=== PATIENT | female | born 1980 | race Caucasian/White ===

== ENCOUNTER 2022-12-25 20:24 | Outpatient (REF) | payer BC, SELFPAY ==
[2022-12-30 14:09] LABS: Age Gdln ACOG Testing Note (.); HPV Aptima Negative (Negative); IGP, Aptima HPV, rfx 16/18,45 Note (.)
== END 2022-12-25 20:25 | disposition home or self-care (01) ==
LOC: LAB 20:24
PROVIDERS: Visit Provider Obstetrics & Gynecology
DX: Z01.419 Encounter for gynecological examination (general) (routine) without abnormal findings (principal)
CPT/HCPCS: 87624; G0145

== ENCOUNTER 2023-08-14 09:53 | Outpatient (OUT) | payer BC, SELFPAY ==
--- OUTSIDE RECORDS SUMMARY | 2023-08-14 10:12 | XMS_ITS ---
Patient Summarization (C-CDA 2.1 CCD) Created on: August 14, 2023 GHULAM WEBB : 1980 Sex: Female Author Organization Sample organization Care Team Providers Care Manufacturing Engineer Supervisor Name Role Phone LYNDSAY CARMICHAEL Primary Care Physician Arlet Mullen Unavailable Jelly Cr Unavailable Cecilio KOLB Attending Unavailable Cecilio KOLB Attending Unavailable CRYSTAL ., DR DUBOIS Admitting Unavailable CRYSTAL ., DR DUBOIS Attending Unavailable [facility], DR FRANCISCO Primary Care Unavailable CRYSTAL ., DR DUBOIS Consulting Unavailable ZIER, DR CASEY Hernandez Consulting Unavailable Encounters Encounter Date Encounter Type Care Provider Facility Start: 07-11-2022 End: 07-12-[address] SHERLY ROJAS . Facility: Start: 06-04-2021 ambulatory Cecilio KOLB Facili ty:[facility] Start: 05-27-2021 End: 05-28-2021 ambulatory Cecilio KOLB Facility: [place] Start: 05-27-2021 End: 05-27-2021 Patient encounter procedure Eliu Gaona Jr. [facility] [place] Start: 04-29-2021 ambulatory Cecilio KOLB Facility :[facility] Start: 02-11-2021 End: 02-11-2021 ambulatory Jelly Cr Other [employer] Other Start: 02-11-2021 Office outpatient visit 15 minutes Jelly Cr [facility] Start: 01-15-2021 End: 01-15-2021 ambulatory Arlet Mullen Other [employer] Other Start: 01-15-2021 Office outpatient visit 15 minutes Arlet Mullen [facility] Medications Current Medications Medication Drug Class(es) Dates Sig (Normalized) Sig (Original) acetaminophen 325 mg oral tablet (1 source) Start: 07-26-2020 take 1 mg by mouth every four hours Tylenol 325 mg Tab mg tab(s), Oral, q4hr, Refills(s) 0 Start Date: 07/26/20 Status: Ordered acetaminophen 325 mg / butalbital 50 mg oral tablet (1 source) Barbiturate Start: 07-26-2020 take 1 tablet by mouth every four hours acetaminophen-butal bital 325 mg-50 mg oral tablet tab(s), Oral, q4hr, Refill(s) 0 Start Date: 07/26/20 Status: Ordered cyclobenzaprine hydrochloride 10 mg oral tablet (1 source) Muscle Relaxant Start: 04-16-2021 take 1 tablet by mouth twice daily as needed for muscle spasms cyclobenzaprine 10 mg Tab 10 mg = 1 tab(s), Oral, BID, PRN for spasm, # 60 tab(s), Refills(s) 1, Pharmacy: [facility]/pharmacy #[id number], 176, cm, 04/16/21 9:02:00 EST, Height/Length Dosing, 75.9, kg, 04/16/21 9:02:00 EST, Weight Dosing Start Date: 04/16/21 Status: Ordered eletriptan 40 mg oral tablet (1 source) Serotonin-1b and Serotonin-1d Receptor Agonist Start: 07-26-2020 Relpax 40 mg Tab mg tab(s), Oral, as needed, Refills(s) 0 Start Date: 07/26/20 Status: Ordered (2 sources) Active Motrin Migraine Pain (1 source) Start: 07-26-2020 take 1 mg by mouth every six hours Motrin Migraine Pain mg, Oral, q6hr, Refills(s) 0 Start Date: 07/26/20 Status: Ordered phentermine hydrochloride 37.5 mg oral tablet (1 source) Sympathomimetic Amine Anorectic Start: 07-26-2020 take 1 tablet by mouth once daily phentermine 37.5 mg oral tablet 37.5 mg = 1 tab(s), Oral, Daily, Refills(s) 0 Start Date: 07/26/20 Status: Ordered Completed/Discontinued Medications Medication Drug Class(es) Dates Sig (Normalized) Sig (Original) cephalexin 500 mg oral capsule (1 source) Cephalosporin Antibacterial Start: 04-16-2021 take 1 tablet by mouth once daily Keflex 500 mg Cap 500 mg = 1 cap(s), Oral, Daily, take 1 tab one day prior to the procedure and one tab after the procedure, # 2 tab(s), Refills(s) 0, Pharmacy: [facility]/pharmacy #[id number], 176, cm, 04/16/21 9:02:00 EST, Height/Length Dosing, 75.9, kg, 04/16/21 9:02:00 EST, Raphael... Start Date: 04/16/21 Status: Ordered Payers Date Payer Category Payer Unknown [id number] 1980 Unknown [id number] [id number] 1980 Unknown [id number] 1980 Unknown [id number] [id number] [id number] 1961 [facility] [id number] Problems Active Problems Problem Classification Problem Date Documented Da te Episodic/Chronic Abdominal pain (1 source) Flank pain 10-26-2020 Episodic Genitourinary symptoms and ill-defined conditions (1 source) Genuine stress incontinence 04-16-2021 Chronic Genitourinary symptoms and ill-defined conditions (2 sources) Increased frequency of urination; Translations: [Nocturia] 04-16-2021 Episodic Other diseases of kidney and ureters (1 source) Obstruction of pelviureteric junction 10-26-2020 Episodic Past or Other Problems Problem Classification Problem Date Documented Da te Episodic/Chronic Immunizations and screening for infectious disease (2 sources) Contact with and (suspected) exposure to other viral communicable diseases Onset: 01-15-2021 Resolved: 02-11-2021 Episodic Other upper respiratory infections (1 source) Acute upper respiratory infection, unspecified Onset: 01-15-2021 Resolved: 01-15-2021 Episodic Procedures Date Procedure Procedure Detail Performing Clinician Removal of intrauterine device Eliu Gaona Jr. Results Test Name Value Interpretation Reference Range Facility MG MAMM SCREEN 3D HYUN CADon 07-11-2022 MG MAMM SCREEN 3D HYUN CAD Patient: TRACEYGHULAM Aimee. Exam Date: 07/11/2022 : 1980 Gender:F Ordering : DR SHERLY ROJAS . Admission #: [id number] Family : Order #: [id number] CLICK HERE TO VIEW EXAM RADIOLOGY REPORT PROCEDURE: MAMMOGRAM SCREENING 3D BILATERAL CAD COMPARISON: MG MAMM SCREEN 3D HYUN CAD, 2020. INDICATIONS: Screening mammography Calculator Name NCI Breast Cancer Risk Assessment Tool 5 Year Breast Cancer Risk 0.50% Lifetime Breast Cancer Risk 6.50% Personal Breast Cancer No Personal Ovarian Cancer No Treatments None Family Cancers Mother with tongue cancer at age 42. LOCATION: [facility] BREAST COMPOSITION: Heterogeneously dense,which may obscure small masses. FINDINGS: DIAGNOSTIC CATEGORY 1--NEGATIVE. RIGHT BREAST: No significant suspicious finding. No significant change has occurred. LEFT BREAST: No significant suspicious finding. No significant change has occurred. RECOMMENDATIONS: ROUTINE MAMMOGRAM AND CLINICAL EVALUATION IN 12 MONTHS. PLEASE NOTE: A NORMAL MAMMOGRAM DOES NOT EXCLUDE THE POSSIBILITY OF BREAST CANCER. A CLINICALLY SUSPICIOUS PALPABLE LUMP SHOULD BE BIOPSIED. Dictated by: Casey Fuentes M.D. on 07/11/2022 at 13:34 Approved by: Casey Fuentes M.D. on 07/11/2022 at 13:46 Normal [facility] Patient Correspondenceon Patient Correspondence [id number] #1.00CD:127 Normal [facility] Patient Correspondenceon Patient Correspondence [id number] #1.00CD:127 Normal [facility] Provider Letteron 04-10-2022 Provider Letter April 10, 2022 GHULAM WEBB [address] [place] [address] GHULAM WEBB 1980 Dear Mrs. Webb, This letter is to inform you that the providers of [facility], [facility] will no longer be responsible for your routine medical care. Emergency care only will be provided for the thirty (30) days following this letter. During this time period we suggest that you find another physician for your medical needs. A listing of area physicians can be found on [facility]'s website at [email or web address] or you may contact your health plan. We will be glad to forward your records to your new physician as long as we receive a signed release of records form. Sincerely, Dr. Eliu Gaona [facility] [address] [place] [address]. [place] [address] [facility] Patient Letter FTon 2022 Patient Letter [facility] March 24, 2022 Dear Ms. Ghulam Webb, I am corresponding to you by certified mail because you have a medical condition, dilated kidney and obstructive voiding symptoms, which requires follow up. You are a patient of Dr. Gaona who has been out on medical leave. It was recommended that you follow up and we sent you a certified letter previously. Please contact my office at your earliest convenience and we will reschedule your appointment so I can closely monitor your condition. I cannot be responsible for your urologic care if you do not follow up as recommended. Sincerely, Antione Kimble M.D., [facility] DARINEL CRUZ, Antione [facility] Patient Correspondenceon Patient Correspondence [id number] #1.00CD:127 [facility] Provider Letteron 02-04-2022 Provider Letter February 04, 2022 GHULAM WEBB [address] [place] [address] GHULAM WEBB 1980 Dear Mrs. Webb, We have been trying to reach you with no success. It is important that you return our call regarding scheduling your routine follow up appointment with our office upon receiving this letter. Also, at the time of your call, please provide us with your current information. Please call our office at [phone] and choose option 1. Thank you for your prompt attention to this matter. Sincerely, [facility] [address] [place] [address]. [place] [address] [facility] ED Note-Physicianon 06-02-19 ED Note-Physician [id number] #1.00CD:127 [facility] Pre-Authorization for Medica l Treatmenton 05-13-2021 Pre-Authorization for Medical Treatment [id number]#1.00CD:127 [facility] COVID Quick Testingon 2020 Result Negative [facility] [employer] Other COV[employer]utamee Quick Testingon 2020 Result Negative [employer] Other Social History Date Type Detail Facility Start: 04-16-2021 Tobacco smoking status Light t obacco smoker (finding) [employer] Other Sex Assigned At Female [employer] Other Vital Signs Date Time Vital Sign Value Performing Clinician Facility 02-11-2021 10:30-0500 Body height 175.26 cm Jelly Cr Other [employer] Other 02-11-2021 10:30-0500 Body mass index (BMI) [Ratio] 23.33 kg/m2 Jelly Cr Other [employer] Other 02-11-2021 10:30-0500 Body temperature 97.9 [degF] Jelly Cr Other [employer] Other 02-11-2021 10:30-0500 Body weight 71.67 kg Jelly Cr Other [employer] Other 02-11-2021 10:30-0500 SaO2% (BldA) [Mass fraction] 98 % Jelly Cr Other [employer] Other 01-15-2021 12:15-0500 Body height 175.26 cm Arlet Sebas Other [employer] Other 01-15-2021 12:15-0500 Body mass index (BMI) [Ratio] 23.33 kg/m2 Arlet Aleahntzach Other [employer] Other 01-15-2021 12:15-0500 Body temperature 97.9 [degF] Arlet Sebas Other [employer] Other 01-15-2021 12:15-0500 Body weight 71.67 kg Arlet Aleahntzach Other [employer] Other 01-15-2021 12:15-0500 SaO2% (BldA) [Mass fraction] 97 % Arlet Sebas Other [employer] Other Evaluation note 02-11-2021 Note Date & Type Note Facility 02-11-2021 Evaluation note Encounter Date Diagnosis Assessment Notes Jan, Contact with and (suspected) exposure to other viral communicable diseases (ICD-10 - Z20.828) Today test was performed in office. Results are currently negative. That does not mean that you will not develop COVID or do not currently have a low viral count of COVID. The rapid test works best if symptoms have been over 72 hours and the results can vary if you are asymptomatic There is a higher chance of false negative results to occur if testing is performed too soon. It is recommended that even if results are negative and you have been exposed to someone that has COVID that you follow current CDC recommendations . These can be found at CDC.GOV. Follow up with primary care provider if symptoms persist or do not improve *HANOUT GIVEN ON VIRAL UTI - OTC TREATMENTS, FOLLOW UP AND WHEN TO SEEK EMERGENCY TREATMENT Jan, Other Additional time spent conducting pre-visit phone call, screening for symptoms, instructions on social distancing, application and removal of PPE, and cleaning of examination room, equipment and supplies was preformed. Patient education given for testing methodology and results. Patient care instructions given in writting by [facility] Care At Home document. [employer] Other Evaluation note 01-15-2021 Note Date & Type Note Facility 01-15-2021 Evaluation note Encounter Date Diagnosis Assessment Notes Dec, Contact with and (suspected) exposure to other viral communicable diseases (ICD-10 - Z20.828) Dec, Viral URI (ICD-10 - J06.9) Advised patient that COVID antigen test was negative today. Advised patient that will tx as viral URI. Supportive care as directed, increase fluids and rest, Tylenol/Motrin as directed, OTC cough/cold remedies as directed on packaging, cool mist humidifier, throat lozenges. Discussed infection control practices such as good hand washing and mask wearing. Patient does not have PCP, advised that she may call up until thursday if she is still experiencing symptoms to obtain COVID PCR test. Immediate eval for warning s/sx as discussed. Patient verbalizes understanding and is agreeable to treatment plan Dec, Other Additional time spent conducting pre-visit phone call, screening for symptoms, instructions on social distancing, application and removal of PPE, and cleaning of examination room, equipment and supplies was preformed. Patient education given for testing methodology and results. Patient care instructions given in writting by [facility] Care At Home document [employer] Other Evaluation + Plan note 07-26-2020 Radiology Note Date & Type Note Facility 07-26-2020 Evaluation + Plan note Future Scheduled TestsNM Kidney Imaging w/ Flow w/ Pharm 07/26/20 [facility] [place] History general Narrative - Reported Note Date & Type Note Facility History general Narrative - Reported Type Medical History migraine headache [employer] Other Hospital course Narrative Note Date & Type Note Facility Hospital course Narrative No data available for this section [facility] Hospital Discharge instructions Note Date & Type Note Facility Hospital Discharge instructions No data available for this section [facility] Summary Purpose Family History No Family History Records FoundNo Family History Records Found Advance Directives No Advanced Directives Records FoundNo Advanced Directives Records Found Additional Source Comments REASON FOR VISIT (unrecogniz ed section and content) #11 RED CHRYSLER, EXPOSED, S INUS CONGESTION, HEADACHE, COVID Provider Visit#3 RED MINI VAN, H/A, SORE THROAT, RUNNY NOSE, COVID Provider Visit INFORMATION SOURCE (unrecogn ized section and content) DATE CREATED AUTHOR 04/25/2022 [facility] DATE CREATED AUTHOR AUTHOR'S ORGANIZ ATION [facility]2022 [facility] FOR RECORDS PERTAINING TO PATIENTS WHO ARE OR HAVE BEEN ENROLLED IN A CHEMICAL DEPENDENCY/SUBSTANCEABUSE PROGRAM, SOME INFORMATION MAY BE OMITTED. This clinical summary was aggregated from multiple sources. Caution should be exercised in using it in the provision of clinical care. This summary normalizes information from multiple sources, and as a consequence, information in this document may materially change the coding, format and clinical context of patient data. In addition, data may be omitted in some cases. CLINICAL DECISIONS SHOULD BE BASED ON THE PRIMARY CLINICAL RECORDS. [facility]. provides no warranty or guarantee of the accuracy or completeness of information in this document.
--- NOTE | 2023-08-14 10:15 | MM_ITS ---
Patient Name: GHULAM WEBB MR#: [id number] : 1980 Exam Date: 08/14/2023 Ordering Doctor: DR Benoit Connors . RADIOLOGY REPORT PROCEDURE: MM TOMOSYNTHESIS SCREENING BI COMPARISON: MG MAMM SCREEN 3D HYUN CAD, 12/27/2020. MG MAMM SCREEN 3D HYUN CAD, 07/11/2022. INDICATIONS: Screening Calculator Name NCI Breast Cancer Risk Assessment Tool 5 Year Breast Cancer Risk 0.50% Lifetime Breast Cancer Risk 6.50% Personal Breast Cancer No Personal Ovarian Cancer No Treatments None Family Cancers Mother with tongue cancer at age ~42; Aunt-paternal with breast cancer at age ~50. LOCATION: [facility] BREAST COMPOSITION: The breasts are heterogeneously dense,which may obscure small masses. FINDINGS: DIAGNOSTIC CATEGORY 1--NEGATIVE. NO CHANGE FROM COMPARISON ASSESSMENT. Scattered benign-appearing calcifications are present. Scattered benign-appearing lymph nodes are present. RIGHT BREAST: No significant suspicious finding. LEFT BREAST: No significant suspicious finding. RECOMMENDATIONS: ROUTINE MAMMOGRAM AND CLINICAL EVALUATION IN 12 MONTHS. PLEASE NOTE: A NORMAL MAMMOGRAM DOES NOT EXCLUDE THE POSSIBILITY OF BREAST CANCER. A CLINICALLY SUSPICIOUS PALPABLE LUMP SHOULD BE BIOPSIED. Dictated by: Javi Carnes MD on 08/14/2023 at 13:35 Approved by: Javi Carnes MD on 08/14/2023 at 13:36
== END 2023-08-14 09:54 | disposition home or self-care (01) ==
LOC: MAMMO 09:53
PROVIDERS: Visit Provider Obstetrics & Gynecology
DX: Z12.31 Encounter for screening mammogram for malignant neoplasm of breast (principal); Z80.3 Family history of malignant neoplasm of breast; Z80.8 Family history of malignant neoplasm of other organs or systems
CPT/HCPCS: 77063; 77067

== ENCOUNTER 2023-12-28 13:46 | Outpatient (REF) | payer BC, SELFPAY | END 2023-12-28 13:47 | disposition home or self-care (01) | LOC: LAB 13:46 | PROVIDERS: Visit Provider Obstetrics & Gynecology | DX: N84.1 Polyp of cervix uteri (principal) ==

== ENCOUNTER 2023-12-28 21:43 | Outpatient (REF) | payer BC, SELFPAY ==
--- OUTSIDE RECORDS SUMMARY | 2023-12-28 21:48 | XMS_ITS | CCD ---
Author Organization [facility] Care Team Providers Care Specifications Checker Name Role Phone LEONLYNDSAY HIDALGO Primary Care Physician Arlet Mullen Unavailable Jelly Cr Unavailable Cecilio KOLB Attending Unavailable Cecilio KOLB Attending Unavailable DORY ., DR DUBOIS Admitting Unavailable DORY ., DR DUBOIS Attending Unavailable [facility] DR FRANCISCO Primary Care Unavailable DORY ., DR DUBOIS Consulting Unavailable BASIA, DR CASEY Hernandez Consulting Unavailable Unavailable [facility] Provider [facility] SHER[facility] Walker Attending Unavailable Medications Current Medications Medication Drug Class(es) Dates [...] 1 tablet by mouth every four hours acetaminophen-butalb ital 325 mg-50 mg oral tablet tab(s), Oral, q4hr, Refill(s) 0 Start Date: 07/26/20 Status: Ordered cyclobenzaprine hydrochloride 10 mg oral tablet (1 source) Muscle Relaxant Start: 04-16-2021 take 1 tablet by mouth twice daily as needed for muscle spasms cyclobenzaprine 10 mg Tab 10 mg = 1 tab(s), Oral, BID, PRN for spasm, # 60 tab(s), Refills(s) 1, Pharmacy: [facility]/pharmacy #[id number], 176, cm, 04/16/21 9:02:00 EST, Height/Length Dosing, 75.9, kg, 04/16/21 9:02:00 EST, Weight Dosing Start Date: 04/16/21 Status: Ordered eletriptan 40 mg oral tablet (7 sources) Serotonin-1b and Serotonin-1d Receptor Agonist Start: 03-13-2023 take 1 tablet by mouth once eletriptan (Relpax) 40 MG tablet Indications: Chronic migraine with aura without status migrainosus, not intractable (CMS/HCC) TAKE 1 TABLET (40 MG) BY MOUTH 1 (ONE) TIME IF NEEDED FOR MIGRAINE FOR UP TO 6 DOSES. MAY REPEAT IN 2 HOURS IF UNRESOLVED. DO NOT EXCEED 80 MG IN 24 HOURS. 6 tablet 1 03/13/2023 Active Start: 07-26-2020 Relpax 40 mg T ab mg tab(s), Oral, as needed, Refills(s) 0 Start Date: 07/26/20 Status: Ordered (2 sources) Active 24 hr metFORMIN hydrochloride 500 mg extended release oral tablet (2 sources) Biguanide Start: End: take 1 tablet by mouth every twenty-four hours at mealtime metFORMIN XR (Glucophage-XR) 500 MG 24 hr tablet Indications: Weight gain Take 1 tablet (500 mg) by mouth in the evening. Take with meals Do not crush, chew, or split. 30 tablet 11 12/21/2023 01/20/2024 Active Motrin Migraine Pain (1 source) Start: take 1 mg by mouth every six hours Motrin Migraine Pain mg, Oral, q6hr, Refills(s) 0 Start Date: 07/26/20 Status: Ordered phentermine hydrochloride 37.5 mg oral tablet (1 source) Sympathomimetic Amine Anorectic Start: take 1 tablet by mouth once daily phentermine 37.5 mg oral tablet 37.5 mg = 1 tab(s), Oral, Daily, Refills(s) 0 Start Date: 07/26/20 Status: Ordered rimegepant 75 mg disintegrating oral tablet (2 sources) Start: End: take 1 tablet by mouth every other day Rimegepant Sulfate (Nurtec) 75 MG tablet dispersible Indications: Chronic migraine with aura without status migrainosus, not intractable (CMS/HCC) Take 1 tablet by mouth every other day 16 tablet 3 12/21/2023 01/20/2024 Active Completed/Discontinued Medications Medication Drug Class(es) Dates Sig (Normalized) Sig (Original) cephalexin 500 mg oral capsule (1 source) Cephalosporin Antibacterial Start: 04-16-2021 take 1 tablet by mouth once daily Keflex 500 mg Cap 500 mg = 1 cap(s), Oral, Daily, take 1 tab one day prior to the procedure and one tab after the procedure, # 2 tab(s), Refills(s) 0, Pharmacy: [facility]/pharmacy #[id number], 176, cm, 04/16/21 9:02:00 EST, Height/Length Dosing, 75.9, kg, 04/16/21 9:02:00 EST, Raphael... Start Date: 04/16/21 Status: Ordered Problems Active Problems Problem Classification Problem Date Documented Date Episodic/Chronic Abdominal pain (1 source) Flank pain 10-26-2020 Episodic Genitourinary symptoms and ill-defined conditions (1 source) Genuine stress incontinence 04-16-2021 Chronic Genitourinary symptoms and ill-defined conditions (2 sources) Increased frequency of urination; Translations: [Nocturia] 04-16-2021 Episodic Headache; including migraine (2 sources) Transformed migraine; Translations: [Chronic migraine with aura without status migrainosus, not intractable (CMS/HCC)] 12-21-2023 Chronic Malaise and fatigue (4 sources) Fatigue; Translations: [Other fatigue] Onset: 12-21-2023 12-21-2023 Episodic Menopausal disorders (4 sources) Perimenopausal state; Translations: [Menopausal and female climacteric states] Onset: 12-21-2023 12-21-2023 Chronic Mood disorders (4 sources) Mood swings; Translations: [Emotional lability] Onset: 12-21-2023 12-21-2023 Episodic Other diseases of kidney and ureters (1 source) Obstruction of pelviureteric junction 10-26-2020 Episodic Other endocrine disorders (6 sources) Disorder of endocrine system; Translations: [Endocrine disorder, unspecified] Onset: 12-21-2023 12-21-2023 Episodic Other nervous system disorders (4 sources) Impaired cognition; Translations: [Other symptoms and signs involving cognitive functions and awareness] Onset: 12-21-2023 12-21-2023 Episodic Other nutritional; endocrine; and metabolic disorders (4 sources) Weight increased; Translations: [Abnormal weight gain] Onset: 12-21-2023 12-21-2023 Episodic Other skin disorders (4 sources) Night sweats; Translations: [Generalized hyperhidrosis] Onset: 12-21-2023 12-21-2023 Episodic Past or Other Problems Problem Classification Problem Date Documented Da te Episodic/Chronic Immunizations and screening for infectious disease (2 sources) Contact with and (suspected) exposure to other viral communicable diseases Onset: 01-15-2021 Resolved: 02-11-2021 Episodic Other upper respiratory infections (1 source) Acute upper respiratory infection, unspecified Onset: 01-15-2021 Resolved: 01-15-2021 Episodic Results Test Name Value Interpretation Reference Range Facility MG MAMM SCREEN 3D HYUN CADon 07-11-2022 MG MAMM SCREEN 3D HYUN CAD Patient: GHULAM WEBB Exam Date: 07/11/2022 : 1980 Gender:F Ordering : DR SHERLY CNONORS . Admission #: [id number] Family : Order #: [id number] CLICK HERE TO VIEW EXAM RADIOLOGY REPORT [...] tongue cancer at age 40. LOCATION: [facility] BREAST COMPOSITION: Heterogeneously dense,which may obscure small [...] Fuentes M.D. on 07/11/2022 at 13:46 Normal [facility] Patient Correspondenceon Patient Correspondence [id number] #1.00CD:127 Normal [facility] Patient Correspondenceon Patient Correspondence [id number] #1.00CD:127 Normal [facility] Provider Letteron 04-10-2022 Provider Letter April 10, 2022 GHULAM [address]BB [address] [place] [address] GHULAM WEBB 1980 Dear Mrs. Webb, This letter is to inform you that the providers of [facility], [facility] will no longer be responsible for your routine medical care. Emergency care only will be provided for the thirty (30) days following this letter. During this time period we suggest that you find another physician for your medical needs. A listing of area physicians can be found on [facility]'s website at [email or web address] or you may contact your health plan. We will be glad to forward your records to your new physician as long as we receive a signed release of records form. Sincerely, Dr. Eliu Gaona [facility] [address] [place], [place] [id number] [facility] Patient Letter FTon 2022 Patient Letter [facility] March 24, 2022 Dear Adilson Ghulam Shailesh, I am corresponding to you by certified [...] up as recommended. Sincerely, Antione Kimble M.D., [facility] DARINEL CRUZ, Antione Ventura [facility] Patient Correspondenceon Patient Correspondence [id number] #1.00CD:127 [facility] Provider Letteron 02-04-2022 Provider Letter February 04, 2022 GHULAM WEBB [address] [place] [address] GHULAM WEBB Aimee 1980 Dear Mrs. Webb, We have been trying to reach you with no success. It is important that you return our call regarding scheduling your routine follow up appointment with our office upon receiving this letter. Also, at the time of your call, please provide us with your current information. Please call our office at [phone] and choose option 1. Thank you for your prompt attention to this matter. Sincerely, [facility] [address] [place] [address]. [place] [address] [facility] ED Note-Physicianon 06-02-19 ED Note-Physician [id number] #1.00CD:127 [facility] Pre-Authorization for Medica l Treatmenton 05-13-2021 Pre-Authorization for Medical Treatment [id number]#1.00CD:127 [facility] COVID Quick Testingon 2020 Result Negative [facility] [employer] Other COVID Quick Testingon 2020 Result Negative [facility] [employer] Other Vital Signs Date Time Vital Sign Value Performing Clinician Facility 12-21-2023 13:28-0400 Body mass index (BMI) [Ratio] 22.89 kg/m2 [employer] Work Phone: [facility] [employer] 12-21-2023 13:28-0400 Body weight 70.31 kg [employer] Work Phone: [facility] 12-21-2023 13:28-0400 Diastolic blood pressure 72 mm[Hg] [employer] Work Phone: [facility] 12-21-2023 13:28-0400 Systolic blood pressure 122 mm[Hg] Sherly Connors DO Work Phone: [facility] 02-11-2021 10:30-0500 Body height 175.26 cm Jelly Princeault Other [employer] Other 02-11-2021 10:30-0500 Body mass index (BMI) [Ratio] 23.33 kg/m2 Jelly Princeault Other [employer] Other 02-11-2021 10:30-0500 Body temperature 97.9 [degF] Jelly Princeault Other [employer] Other 02-11-2021 10:30-0500 Body weight 71.67 kg Jelly Princeault Other [employer] Other 02-11-2021 10:30-0500 SaO2% (BldA) [Mass fraction] 98 % Jelly Cr Other [employer] Other 01-15-2021 12:15-0500 Body height 175.26 cm Arlet Ginty Other [employer] Other 01-15-2021 12:15-0500 Body mass index (BMI) [Ratio] 23.33 kg/m2 Arlet Ginty Other [employer] Other 01-15-2021 12:15-0500 Body temperature 97.9 [degF] Arlet Ginty Other [employer] Other 01-15-2021 12:15-0500 Body weight 71.67 kg Arlet Ginty Other [employer] Other 01-15-2021 12:15-6108 SaO2% (BldA) [Mass fraction] 97 % Arlet Mullen Other [employer] Other Encounters Encounter Date Encounter Type Care Provider Facility Start: 12-21-2023 End: 12-21-2023 Bamboo flowsheet Sherly Dory DO Work Phone: [facility] Start: 12-21-2023 End: 12-21-2023 Bamboo flowsheet Sherly Dory DO Work Phone: [facility] Start: 12-21-2023 End: 12-21-2023 Office outpatient visit 15 minutes Sherly Dory DO Work Phone: [facility] Comment on above: Natali-menopause; Hormone imbalance; Hormone disorder; Mood swings; Brain fog; Fatigue, unspecified type; Night sweats; Weight gain; Chronic migraine with aura without status migrainosus, not intractable (CMS/[facility]) Start: 12-21-2023 End: 12-21-2023 ambulatory SHERLY CONNORS Not Available Start: 07-11-2022 End: 07-12-[address] SHERLY CONNORS . Facility: Start: 06-04-2021 ambulatory Cecilio KOLB Facili ty:[facility] Start: 05-27-2021 End: 05-28-2021 ambulatory Cecilio KOLB Facility: [place] Start: 05-27-2021 End: 05-27-2021 Patient encounter procedure Eliu Gaona Jr. [facility] [place] Start: 04-29-2021 ambulatory Cecilio KOLB Facility :[facility] Start: 02-11-2021 End: 02-11-2021 ambulatory Jelly Cr Other [employer] Other Start: 02-11-2021 Office outpatient vi sit 15 minutes Jelly Cr [facility] Start: 01-15-2021 End: 01-15-2021 ambulatory Arlet Mullen Other [employer] Other Start: 01-15-2021 Office outpatient vi sit 15 minutes Arlet Mullen [facility] Procedures Date Procedure Procedure Detail Performing Clinician Removal of intrauterine device Eliu Gaona Jr. Plan of Treatment Date Care Activity Detail Author Start: 01-18-2024 End: 01-18-2024 Patient encounter procedure 01/18/2024 9:10 AM EST Office Visit [facility] [address] [place] [id number] Sherly Connors, DO [address] [place] [address] [facility] Start: 12-28-2023 End: 12-28-2023 Patient encounter procedure 12/28/2023 3:30 PM EDT Office Visit [facility] [address] [place] [address] Sherly Connors, DO [address] [place] [address] [facility] Start: 12-21-2023 End: 12-20-2024 C-peptide C-peptide Lab Routine Natali-menopause Hormone imbalance Hormone disorder Expected: 12/21/2023, Expires: 12/20/2024 [facility] Comment on above: Expected: 12/21/2023 , Expires: 12/20/2024 Start: 12-21-2023 End: 12-20-2024 Cortisol free Cortisol, free Lab Routine Natali-menopause Hormone imbalance Hormone disorder Expected: 12/21/2023, Expires: 12/20/2024 [facility] Comment on above: Expected: 12/21/2023 , Expires: 12/20/2024 Start: 12-21-2023 End: 12-20-2024 DHEA-sulfate DHEA-sulfate Lab Routine Natali-menopause Hormone imbalance Hormone disorder Expected: 12/21/2023 (Approximate), Expires: 12/20/2024 [facility] Comment on above: Expected: 12/21/2023 (Approximate), Expires: 12/20/2024 Start: 12-21-2023 End: 12-20-2024 Estradiol Estradiol Lab Routine Natali-menopause Hormone imbalance Hormone disorder Expected: 12/21/2023 (Approximate), Expires: 12/20/2024 [facility] Work Phone: Comment on above: Expected: 12/21/2023 (Approximate), Expires: 12/20/2024 Start: 12-21-2023 End: 12-20-2024 Estrone Estrone Lab Routine Natali-menopause Hormone imbalance Hormone disorder Expected: 12/21/2023 (Approximate), Expires: 12/20/2024 [facility] Comment on above: Expected: 12/21/2023 (Approximate), Expires: 12/20/2024 Start: 12-21-2023 End: 12-20-2024 Ferritin [Mass/volume] in Serum or Plasma Ferritin Lab Routine Natali-menopause Hormone imbalance Hormone disorder Expected: 12/21/2023 (Approximate), Expires: 12/20/2024 [facility] Comment on above: Expected: 12/21/2023 (Approximate), Expires: 12/20/2024 Start: 12-21-2023 End: 12-20-2024 Glucose [Mass/volume] in Serum or Plasma Glucose, random Lab Routine Natali-menopause Hormone imbalance Hormone disorder Expected: 12/21/2023, Expires: 12/20/2024 [facility] Comment on above: Expected: 12/21/2023 , Expires: 12/20/2024 Start: 12-21-2023 End: 12-20-2024 Hemoglobin A1c/Hemoglobin.total in Blood Hemoglobin A1c Lab Routine Natali-menopause Hormone imbalance Hormone disorder Expected: 12/21/2023 (Approximate), Expires: 12/20/2024 [facility] Comment on above: Expected: 12/21/2023 (Approximate), Expires: 12/20/2024 Start: 12-21-2023 End: 12-20-2024 Insulin, total Insulin, total Lab Routine Natali-menopause Hormone imbalance Hormone disorder Expected: 12/21/2023, Expires: 12/20/2024 [facility] Comment on above: Expected: 12/21/2023 , Expires: 12/20/2024 Start: 12-21-2023 End: 12-20-2024 Progesterone Progesterone Lab Routine Natali-menopause Hormone imbalance Hormone disorder Expected: 12/21/2023 (Approximate), Expires: 12/20/2024 [facility] Comment on above: Expected: 12/21/2023 (Approximate), Expires: 12/20/2024 Start: 12-21-2023 End: 12-20-2024 Serotonin serum Serotonin serum Lab Routine Natali-menopause Hormone imbalance Hormone disorder Expected: 12/21/2023, Expires: 12/20/2024 [facility] Comment on above: Expected: 12/21/2023 , Expires: 12/20/2024 Start: 12-21-2023 End: 12-20-2024 Sex hormone binding globulin Sex hormone binding globulin Lab Routine Natali-menopause Hormone imbalance Hormone disorder Expected: 12/21/2023 (Approximate), Expires: 12/20/2024 [facility] Comment on above: Expected: 12/21/2023 (Approximate), Expires: 12/20/2024 Start: 12-21-2023 End: 12-20-2024 T3, reverse T3, reverse Lab Routine Natali-menopause Hormone imbalance Hormone disorder Expected: 12/21/2023 (Approximate), Expires: 12/20/2024 [facility] Comment on above: Expected: 12/21/2023 (Approximate), Expires: 12/20/2024 Start: 12-21-2023 End: 12-20-2024 TESTOSTERONE, FREE TESTOSTERONE, FREE Lab Routine Natali-menopause Hormone imbalance Hormone disorder Expected: 12/21/2023 (Approximate), Expires: 12/20/2024 [facility] Comment on above: Expected: 12/21/2023 (Approximate), Expires: 12/20/2024 Start: 12-21-2023 End: 12-20-2024 Testosterone, free, total Testosterone, free, total Lab Routine Natali-menopause Hormone imbalance Hormone disorder Expected: 12/21/2023 (Approximate), Expires: 12/20/2024 [facility] Comment on above: Expected: 12/21/2023 (Approximate), Expires: 12/20/2024 Start: 12-21-2023 End: 12-20-2024 Thyroglobulin Thyroglobulin Lab Routine Natali-menopause Hormone imbalance Hormone disorder Expected: 12/21/2023, Expires: 12/20/2024 [facility] Comment on above: Expected: 12/21/2023 , Expires: 12/20/2024 Start: 12-21-2023 End: 12-20-2024 Thyroglobulin Antibody Thyroglobulin Antibody Lab Routine Natali-menopause Hormone imbalance Hormone disorder Expected: 12/21/2023, Expires: 12/20/2024 [facility] Comment on above: Expected: 12/21/2023 , Expires: 12/20/2024 Start: 12-21-2023 End: 12-20-2024 Thyroid peroxidase antibody Thyroid peroxidase antibody Lab Routine Natali-menopause Hormone imbalance Hormone disorder Expected: 12/21/2023 (Approximate), Expires: 12/20/2024 [facility] Comment on above: Expected: 12/21/2023 (Approximate), Expires: 12/20/2024 Start: 12-21-2023 End: 12-20-2024 Thyrotropin [Units/volume] in Serum or Plasma [facility] Comment on above: Expected: 12/21/2023 (Approximate), Expires: 12/20/2024 Expected: 12/21/2023 , Expires: 12/20/2024 Start: 12-21-2023 End: 12-20-2024 Thyroxine (T4) free [Mass/volume] in Serum or Plasma T4, free Lab Routine Natali-menopause Hormone imbalance Hormone disorder Expected: 12/21/2023 (Approximate), Expires: 12/20/2024 [facility] Comment on above: Expected: 12/21/2023 (Approximate), Expires: 12/20/2024 Start: 12-21-2023 End: 12-20-2024 Triiodothyronine (T3) Free [Mass/volume] in Serum or Plasma T3, free Lab Routine Natali-menopause Hormone imbalance Hormone disorder Expected: 12/21/2023 (Approximate), Expires: 12/20/2024 [facility] Comment on above: Expected: 12/21/2023 (Approximate), Expires: 12/20/2024 Start: 12-21-2023 End: 12-20-2024 US for US PELVIS-TRANSVAG IF INDICATED Imaging Routine Natali-menopause Hormone imbalance Expected: 12/21/2023 (Approximate), Expires: 12/20/2024 [facility] Comment on above: Expected: 12/21/2023 (Approximate), Expires: 12/20/2024 Start: 12-21-2023 End: 12-20-2024 Vitamin D 1,25 dihydroxy Vitamin D 1,25 dihydroxy Lab Routine Natali-menopause Hormone imbalance Hormone disorder Expected: 12/21/2023 (Approximate), Expires: 12/20/2024 [facility] Healthcare Comment on above: Expected: 12/21/2023 (Approximate), Expires: 12/20/2024 Start: 12-21-2023 End: 12-21-2023 Patient encounter procedure 12/21/2023 1:20 PM EDT Office Visit [facility] [address] [place] [address] Sherly Connors DO [address], [facility] Arrived [facility] Comment on above: Arrived Payers Date [id number] 2021 Unknown [id number] 1980 Unknown [id number] 1980 Unknown [id number] 1980 Unknown [id number] 1980 Unknown [id number] 1961 [facility] [id number] Social History Date Type Detail Facility Start: 04-16-2021 Tobacco smoking status Light tobacco smoker (finding) [employer] Other Sex Assigned At Female [facility] Other Tobacco smoking status NHIS Tobacco smoking consumption unknown [facility] Start: 1980 Sex assigned at Not on file [facility] History of Present illness Narrative 12-21-2023 Shani Kim LPN - 12/21/2023 1:20 PM EDT Note Date & Type Note Facility 12-21-2023 History of Presen t illness Narrative Reason for Appointment: Patient ID: Ghulam Webb is a 42 y.o. female who presents for Discuss Natali Menopause Patient presents today for Consult appointment. MEDICATIONS Current Outpatient Medications Medication Instructions eletriptan (RELPAX) 40 mg, Oral, Once as needed eletriptan (RELPAX) 40 mg, Oral, Once as needed, May repeat in 2 hours if unresolved. Do not exceed 80 mg in 24 hours. ALLERGIES No Known Allergies PROBLEMS Active Ambulatory Problems Diagnosis Date Noted Natali-menopause 12/21/2023 Hormone imbalance 12/21/2023 Resolved Ambulatory Problems Diagnosis Date Noted No Resolved Ambulatory Problems Past Medical History: Diagnosis Date Abnormal weight gain Anxiety Prescott-Walker grade 1 cystocele Hair loss Menorrhagia Migraine (CMS/HCC) Obesity HISTORY PAST MEDICAL HISTORY SOCIAL HISTORY Past Medical History: Diagnosis Date Abnormal weight gain Anxiety Prescott-Walker grade 1 cystocele Hair loss Menorrhagia with irregular menses Migraine (CMS/HCC) Obesity Social History Tobacco Use Smoking status: Not on file Smokeless tobacco: Not on file Substance Use Topics Alcohol use: Not on file Drug use: Not on file FAMILY HISTORY Family History Problem Relation Name Age of Onset Hypertension Mother Cancer Mother Hypertension Father SURGICAL HISTORY Past Surgical History: Procedure Laterality Date CYSTOSCOPY DILATION AND CURETTAGE OF UTERUS MOUTH SURGERY PAP SMEAR 09/2014 NORMAL REVIEW OF SYSTEMS Review of Systems: Review of Systems All other systems reviewed and are negative. OBJECTIVE Objective: Physical Exam Constitutional: Appearance: Normal appearance. She is well-developed. Cardiovascular: Rate and Rhythm: Normal rate and regular rhythm. Pulmonary: Effort: Pulmonary effort is normal. Breath sounds: Normal breath sounds. Abdominal: General: Bowel sounds are normal. There is no distension. Palpations: Abdomen is soft. Tenderness: There is no abdominal tenderness. There is no guarding or rebound. Musculoskeletal: General: No swelling. Normal range of motion. Right lower leg: No edema. Left lower leg: No edema. Neurological: Mental Status: She is alert and oriented to person, place, and time. Skin: General: Skin is warm and dry. Psychiatric: Mood and Affect: Mood normal. Behavior: Behavior normal. Vitals and nursing note reviewed. Exam conducted with a operation supervisor present. Vitals: Estimated body mass index is 22.89 kg/m as calculated from the following: Height as of 12/25/22: 5' 9 . Weight as of this encounter: 155 lb. BP: 122/72 Patient's last menstrual period was 12/19/2023 (exact date). ASSESSMENT & PLAN ICD-10-CM 1. Natali-menopause N95.1 Estradiol Estrone Cortisol, free DHEA-sulfate Sex hormone binding globulin Insulin, total Serotonin serum TSH T4, free T3, reverse Progesterone Vitamin D 1,25 dihydroxy Ferritin T3, free Thyroglobulin Thyroglobulin Antibody Thyroid peroxidase antibody T4 TESTOSTERONE, FREE Testosterone, free, total Hemoglobin A1c Glucose, random C-peptide Estradiol Estrone Cortisol, free DHEA-sulfate Sex hormone binding globulin Insulin, total Serotonin serum TSH T4, free T3, reverse Progesterone Vitamin D 1,25 dihydroxy Ferritin T3, free Thyroglobulin Thyroglobulin Antibody Thyroid peroxidase antibody T4 TESTOSTERONE, FREE Testosterone, free, total Hemoglobin A1c Glucose, random C-peptide 2. Hormone imbalance E34.9 Estradiol Estrone Cortisol, free DHEA-sulfate Sex hormone binding globulin Insulin, total Serotonin serum TSH T4, free T3, reverse Progesterone Vitamin D 1,25 dihydroxy Ferritin T3, free Thyroglobulin Thyroglobulin Antibody Thyroid peroxidase antibody T4 TESTOSTERONE, FREE Testosterone, free, total Hemoglobin A1c Glucose, random C-peptide Estradiol Estrone Cortisol, free DHEA-sulfate Sex hormone binding globulin Insulin, total Serotonin serum TSH T4, free T3, reverse Progesterone Vitamin D 1,25 dihydroxy Ferritin T3, free Thyroglobulin Thyroglobulin Antibody Thyroid peroxidase antibody T4 TESTOSTERONE, FREE Testosterone, free, total Hemoglobin A1c Glucose, random C-peptide 3. Hormone disorder E34.9 Estradiol Estrone Cortisol, free DHEA-sulfate Sex hormone binding globulin Insulin, total Serotonin serum TSH T4, free T3, reverse Progesterone Vitamin D 1,25 dihydroxy Ferritin T3, free Thyroglobulin Thyroglobulin Antibody Thyroid peroxidase antibody T4 TESTOSTERONE, FREE Testosterone, free, total Hemoglobin A1c Glucose, random C-peptide Estradiol Estrone Cortisol, free DHEA-sulfate Sex hormone binding globulin Insulin, total Serotonin serum TSH T4, free T3, reverse Progesterone Vitamin D 1,25 dihydroxy Ferritin T3, free Thyroglobulin Thyroglobulin Antibody Thyroid peroxidase antibody T4 TESTOSTERONE, FREE Testosterone, free, total Hemoglobin A1c Glucose, random C-peptide Patient voiced that she has maintained weight management previously until June of this year. Discussed Metformin with patient and that she does not qualify for Adipex. Patient to have labs drawn for Buderer and packet given to patient to fill out. Patient to also obtain pelvic Ultrasound. Patient to return to clinic for follow up as scheduled. Patient has heavy cycles and that is why ultrasound is being ordered. Patient to [facility] in 4 weeks for Endo Bx and review labs. Documented by Shani Kim LPN on behalf of: Sherly Connors DO documented in this encounter [facility] Evaluation note 02-11-2021 Note Date & Type [...] Patient care instructions given in writting by [facility] document. [facility] Other Evaluation note 01-15-2021 Note Date & [...] Patient care instructions given in writting by [facility] document [facility] Other Evaluation + Plan note 07-26-2020 Radiology Note Date & Type Note Facility 07-26-2020 Evaluation + Plan note Future Scheduled TestsNM Kidney Imaging w/ Flow w/ Pharm 07/26/20 [facility] Evaluation note Note Date & Type Note Facility Evaluation note Diagnosis Natali-menopause Symptomatic menopausal or female climacteric states Hormone imbalance Hormone disorder Unspecified endocrine disorder Mood swings Other specified episodic mood disorder Brain fog Fatigue, unspecified type Night sweats Generalized hyperhidrosis Weight gain Other symptoms concerning nutrition, metabolism, and development Chronic migraine with aura without status migrainosus, not intractable (CMS/HCC) documented in this encounter [facility] History general Narrative - Reported Note Date & Type Note Facility History general Narrative - Reported Type Medical History migraine headache [facility] [employer] Other Hospital course Narrative Note Date & Type Note Facility Hospital course Narrative No data available for this section [facility] Hospital Discharge instructions Note Date & Type Note Facility Hospital Discharge instructions No data available for this section [facility] Summary Purpose Family History No Family History Records FoundNo Family History Records FoundNo Family History Records Found Advance Directives No Advanced Directives Records FoundNo Advanced Directives Records FoundNo Advanced Directives Records Found Additional Source Comments REASON FOR VISIT (unrecogniz ed section and content) Reason Comments Discuss Natali Menopause INFORMATION SOURCE (unrecogn ized section and content) DATE CREATED AUTHOR 04/25/2022 [facility] DATE CREATED AUTHOR AUTHOR'S ORGANIZ ATION 07/12/2022 [facility] DATE CREATED AUTHOR AUTHOR'S ORGANIZ ATION 12/23/2023 [facility] EPIC FOR RECORDS PERTAINING TO PATIENTS WHO ARE [...] BE BASED ON THE PRIMARY CLINICAL RECORDS. [employer] provides no warranty or guarantee of the accuracy or completeness of information in this document.
== END 2023-12-28 21:44 | disposition home or self-care (01) ==
LOC: LAB 21:43
PROVIDERS: Visit Provider Obstetrics & Gynecology
DX: Z01.419 Encounter for gynecological examination (general) (routine) without abnormal findings (principal)
CPT/HCPCS: 87624; 88175